=== PATIENT | female | born 1935 | race Caucasian/White ===

== ENCOUNTER 2020-05-01 16:22 | Emergency (ER) | payer MEDICARE ==
[2020-05-01 16:39] VITALS: BP 134/78
== END 2020-05-01 17:30 | disposition left against medical advice (07) ==
LOC: ED 16:22
DX: Z53.21 Procedure and treatment not carried out due to patient leaving prior to being seen by health care provider (principal)
CPT/HCPCS: 80053; 83690; 85025

== ENCOUNTER 2021-02-19 14:00 | Outpatient (CLI) | payer MEDICARE ==
[2021-02-19 20:02] LABS: BASOPHILS % (AUTO) 0.6 %; EOSINOPHILS # (AUTO) 0.1 10^3/uL (0.0-0.7); EOSINOPHILS % (AUTO) 2.2 %; HGB - HEMOGLOBIN 12.3 g/dL (12.0-16.0); LYMPHOCYTES # (AUTO) 1.5 10^3/uL (1.5-3.5); LYMPHOCYTES % (AUTO) 23.9 %; MEAN CORPUSCULAR HEMOGLOBIN 30.3 pg (27.0-31.0); MEAN CORPUSCULAR HGB CONC 31.5 g/dL (32.0-36.0); MEAN CORPUSCULAR VOLUME 96.1 fL (81.0-99.0); MEAN PLATELET VOLUME 12.2 fL (7.9-10.8); MONOCYTES # (AUTO) 0.4 10^3/uL (0.0-1.0); MONOCYTES % (AUTO) 6.6 %; NEUTROPHILS # (AUTO) 4.3 10^3/uL (1.5-6.6); NEUTROPHILS % (AUTO) 66.4 %; PLT - PLATELET COUNT 425 10^3/uL (130-450); RED BLOOD COUNT 4.06 10^6/uL (4.20-5.40); RED CELL DISTRIBUTION WIDTH 13.8 % (12.0-15.0); WHITE BLOOD COUNT 6.4 x10^3/uL (4.8-10.8)
[2021-02-19 20:18] LABS: ALBUMIN 4.4 g/dL (3.2-5.5); ALBUMIN/GLOBULIN RATIO 1.5 (1.0-2.2); BILIRUBIN,TOTAL 0.5 mg/dL (0.2-1.0); CALCIUM 10.6 mg/dL (8.5-10.3); CREATININE 1.4 mg/dL (0.4-1.0); POTASSIUM 4.3 mmol/L (3.5-5.0); TOTAL PROTEIN 7.4 g/dL (6.7-8.2)
[2021-02-19 20:32] LABS: THYROID STIMULATING HORMONE 17.93 uIU/mL (0.34-5.60)
[2021-02-19 21:17] LABS: FREE T4 (FREE THYROXINE) 0.7 ng/dL (0.58-1.64)
== END 2021-02-19 14:01 | disposition home or self-care (01) ==
LOC: LAB.S 14:00
PROVIDERS: ATTEND Internal Medicine
DX: I10 Essential (primary) hypertension (principal); E03.9 Hypothyroidism, unspecified
CPT/HCPCS: 36415; 80053; 84439; 84443; 85025

== ENCOUNTER 2022-12-30 20:24 | Emergency (ER) | payer MEDICARE ==
[2022-12-30] MEDS ORDERED: HYDROmorphone 1 MG/ML CARPUJECT IVP STA (20:42)
[2022-12-30] MEDS ORDERED: ONDANSETRON 4 MG/2 ML VIAL IVP STA (20:42)
--- NOTE | 2022-12-30 20:44 | ED Physician Documentation ---
PD HPI ABD PAIN - Stated complaint Stated Complaint: ABD PX - Chief complaint Chief Complaint: Abd Pain - History obtained from History obtained from: Patient, Family - Additional information Additional information: 87-year-old woman with history of CKD, hyperlipidemia and hypertension presents with daughter. She has a history of dementia. She developed upper abdominal pain that is been going on all day and worsening with some nausea but no vomiting. She does not recall ever having this before. PD PAST MEDICAL HISTORY - Past Medical History Neuro: Dementia - Past Surgical History Past Surgical History: Yes - Present Medications Home Medications: Ambulatory Orders Medication Instructions Recorded Confirmed Albuterol Sulf [Ventolin Hfa 1 - 2 puffs INH Q4HR PRN #1 gm 11/09/21 Inhaler] Omeprazole 40 mg PO DAILY #14 cap 12/31/22 Ondansetron Odt [Zofran Odt] 4 mg TL Q6H PRN #14 tablet 12/31/22 - Allergies Allergies/Adverse Reactions: Allergies Allergy/AdvReac Type Severity Reaction Status Date / Time Sulfa (Sulfonamide Allergy Unknown Verified 12/30/22 20:28 Antibiotics) - Social History Does the pt smoke?: No Smoking Status: Never smoker Does the pt drink ETOH?: No Does the pt have substance abuse?: No - Immunizations Immunizations are current?: Yes - POLST Patient has POLST: No PD ED PE NORMAL - Vitals Vital signs reviewed: Yes - General General: Alert and oriented X 3 (Mild dementia), Other (Appears uncomfortable and clutching the upper abdomen) - HEENT HEENT: PERRL, EOMI - Neck Neck: Supple, no meningeal sign, No bony TTP - Cardiac Cardiac: RRR, No murmur - Respiratory Respiratory: No respiratory distress, Clear bilaterally - Abdomen Abdomen: Normal bowel sounds, Soft, Non tender - Derm Derm: Normal color, Warm and dry - Neuro Neuro: Alert and oriented X 3, Normal speech - Psych Psych: Normal mood, Normal affect Results - Vitals Vitals: Vital Signs - 24 hr 12/30/22 12/30/22 12/30/22 20:28 21:40 22:30 Temperature 36.5 C Heart Rate 55 L 75 62 Respiratory 16 15 13 Rate Blood Pressure 160/90 H 137/62 H 142/65 H O2 Saturation 100 94 97 If not protocol 2 2 : Oxygen Flow, liters/minute 12/31/22 12/31/22 12/31/22 00:00 01:00 02:02 Temperature Heart Rate 65 63 61 Respiratory 12 20 16 Rate Blood Pressure 130/67 135/34 H 157/67 H O2 Saturation 98 98 98 If not protocol : Oxygen Flow, liters/minute Oxygen O2 Source Room air Oxygen Flow Rate 2 - EKG (time done) 2105 EKG releavant findings:: EKG personally interpreted by author of this note. Relevant findings are: Rate: Rate (enter#) (91) Rhythm: NSR (w PACs) [place]: Normal Intervals: Prolonged NE, Prolonged QT QRS: Normal Ischemia: Non specific changes. No: ST elevation c/w ischemia, ST depression Computer interpretation: Disagree with computer (calling pvcs, but they are narrow more c/w pacs) - Labs Labs: Laboratory Tests 12/30/22 12/30/22 12/30/22 20:54 20:54 20:54 WBC 7.7 RBC 4.15 L Hgb 12.0 Hct 37.4 MCV 90.1 MCH 28.9 MCHC 32.1 RDW 13.2 Plt Count 378 MPV 9.8 Neut # (Auto) 5.3 Lymph # (Auto) 1.5 [place] # (Auto) 0.6 Eos # (Auto) 0.2 Baso # (Auto) 0.0 Absolute Nucleated RBC 0.00 Nucleated RBC % 0.0 Sodium 141 Potassium 3.5 Chloride 110 Carbon Dioxide 23 Anion Gap 8.0 BUN 33 H Creatinine 1.1 Estimated GFR (MDRD) 47 L Glucose 98 Lactic Acid 0.7 Calcium 10.0 Total Bilirubin 0.2 AST 20 ALT 16 Alkaline Phosphatase 73 Troponin I High Sens Total Protein 6.4 Albumin 4.1 Globulin 2.3 Albumin/Globulin Ratio 1.8 Lipase 69 12/30/22 12/30/22 20:54 23:01 WBC RBC Hgb Hct MCV MCH MCHC RDW Plt Count MPV Neut # (Auto) Lymph # (Auto) [place] # (Auto) Eos # (Auto) Baso # (Auto) Absolute Nucleated RBC Nucleated RBC % Sodium Potassium Chloride Carbon Dioxide Anion Gap BUN Creatinine Estimated GFR (MDRD) Glucose Lactic Acid Calcium Total Bilirubin AST ALT Alkaline Phosphatase Troponin I High Sens 53.7 H* 55.2 H* Total Protein Albumin Globulin Albumin/Globulin Ratio Lipase - Rads (name of study) Single view chest x-ray is negative. Relevant Findings:: Final report received, EMP independent interpretation of test PD Medical Decision Making - ED course ED course: 87-year-old woman with upper abdominal pain. She is nontender. She has surgical scars that look like she is probably had a hysterectomy and hernia repair, no cholecystectomy. Differential diagnosis would include AL or vascular emergency as well as biliary colic or cholecystitis or ulcer. Given that she is nontender vascular emergency such as AL or AAA or dissection is quite worrisome. On reevaluation after 0.5 mg of IV hydromorphone she is pain-free, this was A few minutes before 10 PM. CBC was normal. CMP showing mild renal dysfunction, no lactic acidosis. She does have an elevated troponin, and we will repeat at the 2-hour ella to see if it is dynamically changing or may be related to her chronic kidney disease. S/o to Dr martin at 11p change of shift pending rpt trop and CTA abd. Departure - Departure Disposition: 01 Home, Self Care Clinical Impression: Gastroenteritis Condition: Good Instructions: Hiatal Hernia, ED Abdominal Pain Female Non-Specific Abdominal Pain, ED Food Poison Or Gastroenteritis, ED Gastroenteritis Non Infec Follow-Up: BRONSON KRAUS [Primary Care Provider] - Within 1 week Prescriptions: Omeprazole 40 mg PO DAILY #14 cap Ondansetron Odt [Zofran Odt] 4 mg TL Q6H PRN #14 tablet PRN Reason: Nausea / Vomiting Comments: The results of tonight's blood tests were unremarkable, reassuring, and nondiagnostic (in other words, the results do not suggest the cause of your symptoms). The CT scan of your abdomen pelvis does have some mild findings that would be consistent with inflammation of the stomach (gastritis) and some of the small intestine (enteritis). Together, this diagnosis is called gastroenteritis. There are several different causes of gastroenteritis, but, fortunately, the majority of causes of gastroenteritis are benign and self-limited (in other words, tend to resolve within a few days without specific treatment). A moderate-sized hiatal hernia is also noted on CT, and this might be contributing to symptoms. You were given a dose of an acid-blocking medication in the emergency department; stomach acid can cause/contribute to gastritis. I have prescribed an acid-blocking medication for you to be taken once per day for two weeks. I am also prescribing an anti-nausea medication (ondansetron, which was given in the ER) in case you have more nausea/vomiting. These prescriptions have been electronically submitted to [facility] pharmacy in [place]. Forms: PCP List Discharge Date/Time: 12/31/22 02:02
[2022-12-30 20:59] LABS: BASOPHILS % (AUTO) 0.4 %; EOSINOPHILS # (AUTO) 0.2 10^3/uL (0.0-0.7); EOSINOPHILS % (AUTO) 2.7 %; HCT - HEMATOCRIT 37.4 % (37.0-47.0); LYMPHOCYTES # (AUTO) 1.5 10^3/uL (1.5-3.5); MEAN CORPUSCULAR HEMOGLOBIN 28.9 pg (27.0-31.0); MEAN CORPUSCULAR HGB CONC 32.1 g/dL (32.0-36.0); MEAN CORPUSCULAR VOLUME 90.1 fL (81.0-99.0); MEAN PLATELET VOLUME 9.8 fL (7.9-10.8); MONOCYTES # (AUTO) 0.6 10^3/uL (0.0-1.0); NEUTROPHILS # (AUTO) 5.3 10^3/uL (1.5-6.6); NEUTROPHILS % (AUTO) 68.6 %; PLT - PLATELET COUNT 378 10^3/uL (130-450); RED BLOOD COUNT 4.15 10^6/uL (4.20-5.40); RED CELL DISTRIBUTION WIDTH 13.2 % (12.0-15.0); WHITE BLOOD COUNT 7.7 x10^3/uL (4.8-10.8)
[2022-12-30 21:26] LABS: ALBUMIN 4.1 g/dL (3.2-5.5); ALBUMIN/GLOBULIN RATIO 1.8 (1.0-2.2); BILIRUBIN,TOTAL 0.2 mg/dL (0.2-1.0); CREATININE 1.1 mg/dL (0.6-1.3); POTASSIUM 3.5 mmol/L (3.5-4.5); TOTAL PROTEIN 6.4 g/dL (6.4-8.9)
--- NOTE | 2022-12-30 22:07 | XRAY Report ---
PROCEDURE: Chest 1 View X-Ray INDICATIONS: dyspnea TECHNIQUE: One view of the chest was acquired. COMPARISON: 11/09/2021. FINDINGS: Surgical changes and devices: None. Lungs and pleura: No pleural effusions or pneumothorax. Lungs are clear. Mediastinum: Mediastinal contours appear normal. Heart size is normal. Bones and chest wall: No suspicious bony lesions. Overlying soft tissues appear unremarkable. IMPRESSION: No acute cardiopulmonary process. Reviewed by: Jesse Marinelli MD on 12/30/2022 10:05 PM PDT Approved by: Jesse Marinelli MD on 12/30/2022 10:05 PM PDT Station ID: [id number]
[2022-12-31 00:11] VITALS: O2SAT 98
--- NOTE | 2022-12-31 01:03 | CT Report ---
PROCEDURE: ANGIO ABDOMEN/PELVIS W INDICATIONS: upper abd pain CONTRAST: Omni 300 80ml TECHNIQUE: After the administration of intravenous contrast, 2.5 mm thick sections acquired from the diaphragm t o the symphysis. 10 mm maximum-intensity projection (MIP) reformats were then acquired. For radiati on dose reduction, the following was used: automated exposure control, adjustment of mA and/or kV ac cording to patient size. COMPARISON: None FINDINGS: Image quality: Excellent. Aorta: Moderate atherosclerotic calcifications are noted throughout abdominal aorta. No abdominal ao rtic aneurysm or dissection. Mesenteric arteries: Atherosclerotic calcifications are noted involving origin of celiac trunk, super ior mesenteric artery and bilateral renal arteries without hemodynamically significant stenosis. Right pelvic arteries: Mild atherosclerotic calcifications are seen in right iliac arteries and femo ral arteries. No hemodynamically significant stenosis or aneurysm. Left pelvic arteries: Mild atherosclerotic calcifications are seen in left iliac arteries and femora l arteries. No hemodynamically significant stenosis or aneurysm is seen. Extravascular soft tissues: Dependent atelectasis in posterior aspect of bilateral lung bases are see n. Heart size is enlarged, no pericardial effusion. Moderate size hiatal hernia is noted. There is hepatomegaly, no discrete hepatic lesion. Spleen is normal in size. No discrete splenic lesi on. Gallbladder is surgically absent. Intrauterine extrahepatic biliary ductal dilatation is seen. Th ere is no evidence of choledocholithiasis. Pancreas enhances normally. Mild pancreatic ductal dilatat ion is seen measures up to 3 mm in diameter. No adrenal nodules. Kidneys are normal in size and enha ncement, without hydronephrosis. There is gastric wall thickening. Mildly fluid distention of small bowel loops are seen. Mild air and fluid distended colon loops are also noted. There is prior bowel surgery with intact surgical anasto mosis in left lower quadrant abdomen suggest clinical correlation. Proximal small bowel wall thickeni ng and enhancement is noted. No gross colonic wall thickening. No abscess collection. No free fluid o r air. No retroperitoneal or mesenteric adenopathy. No ventral hernias. No suspicious bony lesions . No vertebral body compression fractures. IMPRESSION: 1. No abdominal aortic aneurysm or dissection. Mild to moderate atherosclerotic disease. No hemodynam ically significant stenosis or aneurysm is seen in the major branches of the abdominal aorta or bilat eral pelvic vessels. 2. Postsurgical changes in left side of abdomen. Moderate size hiatal hernia with suggestion of gastr ic wall thickening and proximal small bowel wall thickening suggestive of low-grade gastroenteritis. No evidence of bowel obstruction. No abscess collection. No free fluid of free air. 3. Hepatomegaly, no discrete hepatic lesion. Prior cholecystectomy. Likely chronic biliary ductal dil atation dilatation of pancreatic duct. No gross choledocholithiasis. Reviewed by: Jesse Marinelli MD on 12/31/2022 1:02 AM PDT Approved by: Jesse Marinelli MD on 12/31/2022 1:02 AM PDT Station ID: [id number]
[2022-12-31] MEDS ORDERED: PANTOPRAZOLE 40 MG VIAL IVP STA (01:33)
[2022-12-31 02:11] VITALS: BP 157/67
[2022-12-31] MEDS ORDERED: iohexoL-300 100 ML VIAL IVP ONE (02:34)
--- NOTE | 2022-12-31 02:53 | ED Physician Documentation ---
ED Addendum - Addendum Addendum: 12/31/22 02:51 I received signout/turnover of care from Dr. Joshi; please see his note for complete H&P. At the time of signout, a repeat troponin is pending as well as results of CTA of the abdomen and pelvis. The repeat troponin is 55.2; this is an insignificant change from the initial value (53.7). The CT of the abdomen pelvis has findings that are consistent with mild gastroenteritis. Also noted is a moderate-sized hiatal hernia. I discussed these results with the patient and family member who is at the bedside. The patient is in NAD. Return precautions are discussed. She is given 40 mg IVP Protonix, and I am providing prescriptions for ondansetron as well as a 2-week course of daily omeprazole. I advised patient and her family member to seek follow-up with PCP within the next 7 to 10 days.
== END 2022-12-31 02:02 | disposition home or self-care (01) ==
LOC: ED 20:24
DX: K52.9 Noninfective gastroenteritis and colitis, unspecified (principal)
CPT/HCPCS: 36415; 71045; 74174; 80053; 83605; 83690; 84484; 85025; 93005; 96374; 96375; 99284; J1170; Q9967

== ENCOUNTER 2023-01-06 23:12 | Emergency (ER) | payer MEDICARE ==
--- NOTE | 2023-01-07 01:57 | ED Physician Documentation ---
History of Present Illness - Stated complaint Stated Complaint: RT HAND INJ/COUGH - Chief complaint Chief Complaint: Ext Problem - History obtained from History obtained from: Patient, Family (daughter of patient (in ED at bedside)) - Additonal information Additional information: Patient provides HPI but has dementia and thus unreliable answers. Patient's daughter is at bedside and she provides additional HPI, correcting some misinformation from patient at times. 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 Patient and daughter are concerned for possible infection, as the area of injury and surrounding skin are becoming increasing swollen and painful. The daughter is confidence this was a scratch (she says the pug has long fingernails) and not a bite (she says the pug does not bite anyone including patient). Patient is UTD on tetanus immunization (earlier this year). Patient is right-hand dominant. No fever, no discharge from the wound. No numbness, weakness. ROM intact but pain is exacerbated with movement, palpation. Review of Systems Musculoskeletal: reports: Extremity pain, Extremity swelling Neurologic: denies: Focal weakness, Numbness PD PAST MEDICAL HISTORY - Past Medical History Past Medical History: Yes Neuro: Dementia - Past Surgical History Past Surgical History: Yes - Present Medications Home Medications: Ambulatory Orders Medication Instructions Recorded Confirmed Albuterol Sulf [Ventolin Hfa 1 - 2 puffs INH Q4HR PRN #1 gm 11/09/21 Inhaler] Omeprazole 40 mg PO DAILY #14 cap 12/31/22 Ondansetron Odt [Zofran Odt] 4 mg TL Q6H PRN #14 tablet 12/31/22 Albuterol Sulf [Ventolin Hfa 1 - 2 puffs INH Q4HR PRN #1 each 01/07/23 Inhaler] Amox/Clav 875/125 [Augmentin 1 tablet PO Q12H 10 Days #20 tablet 01/07/23 875/125 Tab] - Allergies Allergies/Adverse Reactions: Allergies Allergy/AdvReac Type Severity Reaction Status Date / Time Sulfa (Sulfonamide Allergy Unknown Verified 01/07/23 11:09 Antibiotics) - Social History Does the pt smoke?: No Smoking Status: Never smoker Does the pt drink ETOH?: No Does the pt have substance abuse?: No - Immunizations Immunizations are current?: Yes - POLST Patient has POLST: No PD ED PE NORMAL - Vitals Vital signs reviewed: Yes - General General: Alert and oriented X 3 (AAOx2), No acute distress, Well developed/nourished PD ED PE EXPANDED - Extremities Extremities: Other BROOKE UE/Hands Visual: 1 - laceration ("V"-shaped laceration with epidermal flap adherent to underlying tissue, leaving 2-3mm gap along length of laceration (underlying dermis visible in this gap but no adipose tissue nor other underlying soft tissue nor bony structure(s))), swelling (surrounding swelling and tenderness but no erythema nor discharge, no fluctuance), tenderness (no bony tenderness) Results - Vitals Vitals: Vital Signs - 24 hr 01/06/23 01/07/23 23:15 02:36 Temperature 36.5 C Heart Rate 54 L 96 Respiratory 16 20 Rate Blood Pressure 140/90 H 149/58 H O2 Saturation 96 98 Oxygen O2 Source Room air PD Medical Decision Making - ED course Complexity details: considered differential, d/w patient, d/w family ED course: closure not attempted due to delay in seeking care (wound sustained over 30 hours ago), no deep tissue structures visible beyond dermis, and considering the flap of the laceration has already become firmly adherent to the underlying tissue. The wound should slowly heal by secondary intention. She is given augm entin PO in ED with rx for a 10-day course of same. Bacitracin is applied and advised to fill the antibiotic and also apply BID bacitracin for ten days. Return precautions reviewed. Advised to follow up with PMD in 4-5 days for wound check. Departure - Departure Disposition: 01 Home, Self Care Clinical Impression: Laceration of hand with infection Qualifiers: Encounter type: initial encounter Laterality: right Qualified Code(s): S61.411A - Laceration without foreign body of right hand, initial encounter Condition: Good Instructions: ED Laceration Infec Not Sutrd Follow-Up: BRONSON KRAUS [Primary Care Provider] - Prescriptions: Amox/Clav 875/125 [Augmentin 875/125 Tab] 1 tablet PO Q12H 10 Days #20 tablet Comments: The laceration to your right hand appears to be infected. You were given the first dose of an antibiotic (Augmentin) in the ER, and I have electronically submitted a prescription for a 10-day course of the same antibiotic to the [facility] in [place]. You should also use a topical antibiotic such as bacitracin twice per day for 10 days. Additionally, is important to wash the wound twice per day with soap and water. Follow-up with your primary care provider in 4-5 days for a recheck of the wound. Forms: PCP List Discharge Date/Time: 01/07/23 02:37
[2023-01-07] MEDS ORDERED: BACITRACIN ZINC OINT 1 PACKET TOP STA (02:09)
[2023-01-07] MEDS ORDERED: AMOX/CLAV 875 MG/125 MG TABLET PO STA (02:09)
[2023-01-07] MEDS ORDERED: AMOX/CLAV 875 MG/125 MG TABLET PO ONE (02:40)
[2023-01-07 02:41] VITALS: BP 149/58; O2SAT 98
== END 2023-01-07 02:37 | disposition home or self-care (01) ==
LOC: ED 23:12
DX: S61.411A Laceration without foreign body of right hand, initial encounter (principal); W54.0XXA Bitten by dog, initial encounter; F03.90 Unspecified dementia, unspecified severity, without behavioral disturbance, psychotic disturbance, mood disturbance, and anxiety
CPT/HCPCS: 99282; 99283

== ENCOUNTER 2023-01-07 11:05 | Emergency (ER) | payer MEDICARE ==
[2023-01-07 11:17] VITALS: BP 106/71; O2SAT 95
--- NOTE | 2023-01-07 11:41 | XRAY Report ---
PROCEDURE: Chest 2 View X-Ray INDICATIONS: cough TECHNIQUE: 2 views of the chest were acquired. COMPARISON: 12/30/2022 FINDINGS: Surgical changes and devices: None. Lungs and pleura: No pleural effusions or pneumothorax. Lungs are clear. Mediastinum: Mediastinal contours appear normal. Heart size is normal. Bones and chest wall: No suspicious bony lesions. Overlying soft tissues appear unremarkable. IMPRESSION: No acute cardiopulmonary process. No focal consolidation. Reviewed by: Isidro Vanessa MD on 01/07/2023 11:39 AM PDT Approved by: Isidro Vanessa MD on 01/07/2023 11:39 AM PDT Station ID: [id number]
--- NOTE | 2023-01-07 13:06 | ED Physician Documentation ---
PD HPI URI - Stated complaint Stated Complaint: COUGHING UP BLOOD - Chief complaint Chief Complaint: Resp - History obtained from History obtained from: Patient, Family - Additional information Additional information: 87-year-old earlier this morning for presents with her daughter. She was seen by my partner woman with dementia cat scratch with infection and started on Augmentin. She had a cough for about a week and they noticed a small dot of blood, about dime sized on the pillow today. The patient has no complaints and she does not seem short of breath. She denies pedal edema or calf pain. No history of lung or heart problems. PD PAST MEDICAL HISTORY - Past Medical History Neuro: Dementia - Past Surgical History Past Surgical History: Yes - Present Medications Home Medications: Ambulatory Orders Medication Instructions Recorded Confirmed Albuterol Sulf [Ventolin Hfa 1 - 2 puffs INH Q4HR PRN #1 gm 11/09/21 Inhaler] Omeprazole 40 mg PO DAILY #14 cap 12/31/22 Ondansetron Odt [Zofran Odt] 4 mg TL Q6H PRN #14 tablet 12/31/22 Albuterol Sulf [Ventolin Hfa 1 - 2 puffs INH Q4HR PRN #1 each 01/07/23 Inhaler] Amox/Clav 875/125 [Augmentin 1 tablet PO Q12H 10 Days #20 tablet 01/07/23 875/125 Tab] - Allergies Allergies/Adverse Reactions: Allergies Allergy/AdvReac Type Severity Reaction Status Date / Time Sulfa (Sulfonamide Allergy Unknown Verified 01/07/23 11:09 Antibiotics) - Social History Does the pt smoke?: No Smoking Status: Never smoker Does the pt drink ETOH?: No Does the pt have substance abuse?: No - Immunizations Immunizations are current?: Yes - POLST Patient has POLST: No PD ED PE NORMAL - Vitals Vital signs reviewed: Yes - General General: No acute distress, Other (Pleasantly confused) - Respiratory Respiratory: No respiratory distress, Other (Mild inspiratory wheezes throughout without focal findings) - Extremities Extremities: No edema, No calf tenderness / cord Results - Vitals Vitals: Vital Signs - 24 hr 01/07/23 11:09 Temperature 36.7 C Heart Rate 57 L Respiratory 18 Rate Blood Pressure 106/71 O2 Saturation 95 Oxygen O2 Source Room air - Rads (name of study) 2v cxr Relevant Findings:: Final report received, EMP independent interpretation of test PD Medical Decision Making - ED course ED course: She had a cough for a week and now had a small amount of hemoptysis. 2 view chest x-ray is clear. PE is considered but given lack of shortness of breath, pedal edema, calf pain, normal vitals and in the setting of pre-existing cough that, as a cause of hemoptysis is much less likely. She is already on Augmentin which is appropriate and will add albuterol. Departure - Departure Disposition: 01 Home, Self Care Clinical Impression: Bronchitis Condition: Good Record reviewed to determine appropriate education?: Yes Instructions: ED Upper Resp Infec No Abx Tx Prescriptions: Albuterol Sulf [Ventolin Hfa Inhaler] 1 - 2 puffs INH Q4HR PRN #1 each PRN Reason: Shortness Of Air/Wheezing Comments: I sent the prescription for the inhaler to the [facility] [place] in [place]. Continue the antibiotics that were already prescribed this morning, follow-up with your doctor if not better over the next few days. Return if new or worsening symptoms develop especially high fever or shortness of breath. Or chest pain.
== END 2023-01-07 13:16 | disposition home or self-care (01) ==
LOC: ED 11:05
DX: J40 Bronchitis, not specified as acute or chronic (principal); S61.411A Laceration without foreign body of right hand, initial encounter; W54.0XXA Bitten by dog, initial encounter; F03.90 Unspecified dementia, unspecified severity, without behavioral disturbance, psychotic disturbance, mood disturbance, and anxiety; F17.200 Nicotine dependence, unspecified, uncomplicated
CPT/HCPCS: 71046; 99282; 99283; 99284; A9270

== ENCOUNTER 2023-07-25 18:36 | Outpatient (CLI) | payer MEDICARE | END 2023-07-25 23:59 | disposition critical access hospital (66) | LOC: EMS 18:36 | DX: R05.9 Cough, unspecified (principal); R06.02 Shortness of breath | CPT/HCPCS: A0425; A0429 ==

== ENCOUNTER 2023-07-25 19:12 | Emergency (ER) | payer MEDICARE ==
--- NOTE | 2023-07-25 20:44 | ED Physician Documentation ---
History of Present Illness - Stated complaint Stated Complaint: COUGH/SOA - Chief complaint Chief Complaint: Resp - History obtained from History obtained from: Patient, Family (daughter, primary caregiver) - Additonal information Additional information: 87-year-old woman presents with epigastric abdominal pain radiating upwards associated with nonproductive cough and subjective sensation of shortness of breath earlier today. She also had a coughing fit resulting in a small episode of posttussive emesis. Denies pain, fever. Patient does have history of dementia and high blood pressure. PD PAST MEDICAL HISTORY - Past Medical History Past Medical History: Yes Neuro: Dementia - Past Surgical History Past Surgical History: Yes - Present Medications Home Medications: Ambulatory Orders Medication Instructions Recorded Confirmed Albuterol Sulf [Ventolin Hfa 1 - 2 puffs INH Q4HR PRN #1 gm 11/09/21 Inhaler] Omeprazole 40 mg PO DAILY #14 cap 12/31/22 Ondansetron Odt [Zofran Odt] 4 mg TL Q6H PRN #14 tablet 12/31/22 Albuterol Sulf [Ventolin Hfa 1 - 2 puffs INH Q4HR PRN #1 each 01/07/23 Inhaler] Amox/Clav 875/125 [Augmentin 1 tablet PO Q12H 10 Days #20 tablet 01/07/23 875/125 Tab] Levothyroxine [Synthroid] 125 mcg PO QDAC 07/25/23 07/25/23 Lisinopril [Zestril] 30 mg PO HS 07/25/23 07/25/23 Mirtazapine 7.5 mg PO HS 07/25/23 07/25/23 Pravastatin Sodium 20 mg PO DAILY 07/25/23 07/25/23 QUEtiapine [SEROquel] 25 mg PO HS 07/25/23 07/25/23 Sertraline HCl 100 mg PO DAILY 07/25/23 07/25/23 Vitamin B Complex Vit C No.3 [B 1 tab PO DAILY 07/25/23 07/25/23 Complex with Vitamin C] - Allergies Allergies/Adverse Reactions: Allergies Allergy/AdvReac Type Severity Reaction Status Date / Time Sulfa (Sulfonamide Allergy Unknown Verified 07/25/23 19:18 Antibiotics) - Social History Does the pt smoke?: No Smoking Status: Never smoker Does the pt drink ETOH?: No Does the pt have substance abuse?: No - Immunizations Immunizations are current?: Yes - POLST Patient has POLST: No PD ED PE NORMAL - Vitals Vital signs reviewed: Yes - General General: No acute distress, Well developed/nourished, Other (Alert, mentating at baseline) - HEENT HEENT: Atraumatic, PERRL, EOMI - Neck Neck: Supple, no meningeal sign - Cardiac Cardiac: RRR - Respiratory Respiratory: No respiratory distress, Clear bilaterally - Abdomen Abdomen: Non tender, Non distended, Other (Epigastrium discomfort to palpation) - Derm Derm: Normal color, Warm and dry Results - Vitals Vitals: Vital Signs - 24 hr 07/25/23 19:15 Temperature 36.8 C Heart Rate 55 L Respiratory 18 Rate Blood Pressure 184/79 H O2 Saturation 97 Oxygen O2 Source Room air - EKG (time done) 1952 EKG releavant findings:: EKG personally interpreted by author of this note. Relevant findings are: Rate: Rate (enter#) (57) Rhythm: NSR Intervals: Normal MD, Other (PVC) QRS: Normal Ischemia: Normal ST segments PD Medical Decision Making - ED course ED course: 87-year-old woman presents with epigastric pain and cough with burning sensation that she attributes to gastric reflux. Symptoms are atypical of ACS and she is well-appearing with benign vitals with exception of some hypertension. I discussed goals of care with her daughter who states that she really just wants to manage her symptoms therefore a GI cocktail was ordered with relief. Return precautions given. Plan to follow-up with primary care provider. Departure - Departure Disposition: 01 Home, Self Care Clinical Impression: GERD (gastroesophageal reflux disease) Condition: Stable Instructions: GERD Dc Comments: You were seen in the emergency department for cough and stomach pain that may be caused by acid reflux. You received a GI cocktail in the emergency department. Please follow-up with your primary care provider and return to the emergency department if you have any new or worsening symptoms or other concerns. Forms: PCP List
[2023-07-25] MEDS: MAG HYDROX/AL HYDROX/SIMETH 30 ML UDC PO STA (21:03)
[2023-07-25] MEDS: LIDOCAINE VISCOUS 2% 15 ML UDC MM STA (21:03)
[2023-07-25 21:16] VITALS: BP 170/94; O2SAT 98
== END 2023-07-25 21:09 | disposition home or self-care (01) ==
LOC: EDUNIT# → ED 19:12
DX: K21.9 Gastro-esophageal reflux disease without esophagitis (principal)
CPT/HCPCS: 93005; 99283; A9270

== ENCOUNTER 2023-08-05 11:44 | Outpatient (CLI) | payer MEDICARE ==
[2023-08-05 15:13] LABS: THYROID STIMULATING HORMONE 6.29 uIU/mL (0.34-5.60)
[2023-08-05 20:40] LABS: ESTIMATED AVERAGE GLUCOSE 120 mg/dL (70-100); HEMOGLOBIN A1c% 5.8 % (4.27-6.07)
== END 2023-08-05 11:45 | disposition home or self-care (01) ==
LOC: LAB.S 11:44
PROVIDERS: ATTEND Physician Assistant Medical
DX: F03.90 Unspecified dementia, unspecified severity, without behavioral disturbance, psychotic disturbance, mood disturbance, and anxiety (principal); E03.9 Hypothyroidism, unspecified; E67.3 Hypervitaminosis D
CPT/HCPCS: 36415; 82306; 82607; 83036; 84443